=== PATIENT | male | born 1960 | race Caucasian/White ===

== ENCOUNTER 2017-11-11 19:27 | Emergency (ER) | payer MEDICAID ==
[~2017-11-11] VITALS: Ht 190.5 cm; Wt 65.3 kg
[~2017-11-11 19:27] MED LIST: DOCU100T9 PO
[2017-11-11 19:36] VITALS: BP_SYST 111
[2017-11-11] MEDS ORDERED: BACITRACIN 1 GM OINT TP ONE (20:00)
[2017-11-11] MEDS ORDERED: IBUPROFEN 600 MG TABLET PO ONE (20:00)
[2017-11-11] MEDS ORDERED: DIPH-TET-PERTUS Vaccine 0.5 ML VIAL (ADACEL) I.M. ONE (20:00)
[2017-11-11 21:33] VITALS: BP_SYST 118
== END 2017-11-11 21:28 | disposition home or self-care (01) ==
LOC: SED 19:27
DX: S46.911A Strain of unspecified muscle, fascia and tendon at shoulder and upper arm level, right arm, initial encounter (principal); S00.81XA Abrasion of other part of head, initial encounter; S80.212A Abrasion, left knee, initial encounter; S80.211A Abrasion, right knee, initial encounter; S60.511A Abrasion of right hand, initial encounter; K21.9 Gastro-esophageal reflux disease without esophagitis; Z88.0 Allergy status to penicillin; Z85.828 Personal history of other malignant neoplasm of skin; W19.XXXA Unspecified fall, initial encounter; Y93.89 Activity, other specified; Y92.89 Other specified places as the place of occurrence of the external cause; Y99.8 Other external cause status
CPT/HCPCS: 73030; 73560-TC; 90715; 99284

== ENCOUNTER 2022-09-05 19:17 | Inpatient (IN) | payer MEDICAID ==
[~2022-09-05] VITALS: Ht 190.5 cm; Wt 77.1 kg
[~2022-09-05 19:17] MED LIST changes: +ASPI-1155 PO; -DOCU100T9 PO; +LEVE1000 PO; +PHEN100C4 PO; +TAMS-11 PO; +VALP500S4 PO
[2022-09-05 19:25] VITALS: BP_SYST 132
--- NOTE | 2022-09-05 19:25 | NUR ---
Patient triaged and placed in waiting room. VSS and patient appears in no acute distress at this time. Accompanied by BLS, awaiting available bed, and MD notified of need for MSE.
[2022-09-05] MEDS ORDERED: levETIRAcetam 1,000 MG IV BAG 100 ML IV ONE (19:30)
[2022-09-05 20:13] LABS: BASOPHILS # (AUTO) 0.1 K/uL (0.0-0.2); BASOPHILS % (AUTO) 0.9 % (0.0-2.0); EOSINOPHILS # (AUTO) 0.1 K/uL (0.0-0.4); EOSINOPHILS % (AUTO) 1.6 % (0.0-4.0); HEMATOCRIT 32.2 % (36-54); HEMOGLOBIN 11.5 g/dL (14.0-18.0); LYMPHOCYTES # (AUTO) 1.8 K/uL (1.0-5.5); LYMPHOCYTES % (AUTO) 32.5 % (20.5-51.5); MEAN CORPUSCULAR HEMOGLOBIN 32 pg (27-31); MEAN CORPUSCULAR HGB CONC 36 % (32-36); MEAN CORPUSCULAR VOLUME 90 fL (79.0-98.0); MONOCYTES # (AUTO) 0.6 K/uL (0.0-1.0); MONOCYTES % (AUTO) 11.6 % (1.7-9.3); NEUTROPHILS % (AUTO) 53.4 % (40.0-70.0); PLATELET COUNT (AUTO) 366 K/uL (130-430); RED CELL DISTRIBUTION WIDTH 14.8 % (9.0-15.0); WHITE BLOOD COUNT (AUTO) 5.5 K/uL (4.8-10.8)
--- NOTE | 2022-09-05 20:28 | NUR ---
Placed in room 07 . Placed on cardiac catheterization technician, blood pressure machine and pulse oximeter. To gown for exam. Side rails up. Report given to ORACIO BROWNING
[2022-09-05 20:35] LABS: CALCIUM 8.2 mg/dL (8.4-11.0); CREATININE 0.64 mg/dL (0.55-1.30); TOTAL BILIRUBIN 0.1 mg/dL (0.0-1.0)
[2022-09-05] MEDS ORDERED: ALBU90AE2 INH (20:37)
[2022-09-05] MEDS ORDERED: HYDR-500 PO (20:37)
[2022-09-05] MEDS ORDERED: TAMS-11 PO (20:37)
[2022-09-05] MEDS ORDERED: CLIN-142 PO (20:37)
[2022-09-05] MEDS ORDERED: VIT1TABL44 PO (20:37)
[2022-09-05] MEDS ORDERED: ERGO500020 PO (20:37)
[2022-09-05] MEDS ORDERED: TERA5CAP4 PO (20:37)
[2022-09-05] MEDS ORDERED: FOLI-43 PO (20:37)
--- NOTE | 2022-09-05 20:42 | NUR ---
PT IS CAME WITH WITNESS SEIZURE, ALERT OTIENTED X4. USTEADY GAIT. HISTORY FOR CRADLE SCAT. SKIN CONDITION SKIN CANCER ON THE SCALP. HEATHER CAREGIVER [phone]
--- NOTE | 2022-09-05 20:45 | NUR ---
PADS FOR SEIZURE ARE PLACED. PT IS RESTING
--- NOTE | 2022-09-05 23:20 | NUR ---
pt had seizure episode witness. MD notified.
[2022-09-05] MEDS ORDERED: LORazepam 2 MG/ML VIAL ONE (23:27)
[2022-09-05] MEDS ORDERED: LORazepam 2 MG/ML VIAL IVP ONE (23:30)
[2022-09-05] MEDS ORDERED: ALBUTEROL SULFATE INH PRN (23:30)
--- NOTE | 2022-09-05 23:40 | NUR ---
Admit bed requested Patient will be admitted to care of . Admitted to telemetry unit. Diagnosis recurrent seizures Inpatient (Yes or No) y Observation (Yes or No) n Orientation concerns or request close to nursing station (Yes or No) y Covid Status neg On vent or bipap n Isolation requirements n Needs a sitter n From Home (Yes or if No enter name of facility) y Requires Dialysis (Yes or No) n Med Rec Completed (Yes of No) y
[2022-09-06] VITALS (7 sets, daily range): BP systolic 109–132
[2022-09-06] MEDS: CLINDAMYCIN HCL 150 MG CAPSULE PO SCH ×5 (00:18→23:23)
--- NOTE | 2022-09-06 01:10 | NUR ---
ADMIT NOTE Received pt from ER with a diagnosis of Encurrent Seizure. Admission process initiated. patient oriented to pain management, safety and call light-teach back done. Patient's small animal caretaker, Maura Eastman at bedside with patient.
--- NOTE | 2022-09-06 01:22 | NUR ---
Patient will be admitted to care of RECURRENT SEIZURE . Admitted to TELE unit. Will go to room 102b. Belongings list completed. Complete and up to date summary report printed. SBAR report to be given at bedside with opportunity for questions.
[2022-09-06 01:29] LABS: BILIRUBIN,URINE NEGATIVE (NEGATIVE); BLOOD, URINE NEGATIVE (NEGATIVE); CLARITY/URINE CLEAR (CLEAR); COLOR,URINE YELLOW (YELLOW); GLUCOSE,URINE NEGATIVE (NEGATIVE); KETONES,URINE NEGATIVE (NEGATIVE); LEUKOCYTE ESTERASE ,URINE NEGATIVE (NEGATIVE); NITRITE, URINE NEGATIVE (NEGATIVE); PH,URINE 6.5 (5.0-8.0); PROTEIN URINE NEGATIVE (NEGATIVE); UROBILINOGEN,URINE 0.2 (0.2-1.0)
--- NOTE | 2022-09-06 06:30 | NUR ---
PATIENT IS TOTAL CARE , NEEDS ASSISTANCE WITH USING THE URINAL , NEEDS FREQUENT RE- ORIENTATION , V/SS
[2022-09-06] MEDS: levETIRAcetam 500 MG TABLET PO SCH ×3 (07:03→21:21)
[2022-09-06] MEDS ORDERED: ALBUTEROL SULFATE 0.083% 2.5 MG/3 ML VIAL.NEB INH PRN (07:15)
--- NOTE | 2022-09-06 08:00 | NUR ---
Initial notes Received patient awake in bed, a/ox2, confusion and forgetful. respiration even and unlabored, no c/o pain or distress. IV to left hand patent, all safety secure, no seizure activity noted, side rails padded, bed in low position, continue to monitor.
[2022-09-06 08:52] LABS: BASOPHILS % (AUTO) 0.6 % (0.0-2.0); EOSINOPHILS # (AUTO) 0.1 K/uL (0.0-0.4); EOSINOPHILS % (AUTO) 1.8 % (0.0-4.0); HEMATOCRIT 32.1 % (36-54); HEMOGLOBIN 11.3 g/dL (14.0-18.0); LYMPHOCYTES # (AUTO) 1.9 K/uL (1.0-5.5); LYMPHOCYTES % (AUTO) 34.6 % (20.5-51.5); MEAN CORPUSCULAR HEMOGLOBIN 32 pg (27-31); MEAN CORPUSCULAR HGB CONC 35 % (32-36); MEAN CORPUSCULAR VOLUME 90 fL (79.0-98.0); MONOCYTES # (AUTO) 0.6 K/uL (0.0-1.0); MONOCYTES % (AUTO) 11.1 % (1.7-9.3); NEUTROPHILS # (AUTO) 2.8 K/uL (1.8-7.7); NEUTROPHILS % (AUTO) 51.9 % (40.0-70.0); PLATELET COUNT (AUTO) 367 K/uL (130-430); RED BLOOD CELL COUNT(AUTO) 3.57 MIL/uL (4.2-6.2); RED CELL DISTRIBUTION WIDTH 14.9 % (9.0-15.0); WHITE BLOOD COUNT (AUTO) 5.5 K/uL (4.8-10.8)
[2022-09-06 08:57] LABS: CALCIUM 7.8 mg/dL (8.4-11.0); CREATININE 0.63 mg/dL (0.55-1.30)
[2022-09-06] MEDS: ASPIRIN 81 MG TAB.CHEW PO SCH (09:29)
[2022-09-06] MEDS: FOLIC ACID 1 MG TABLET PO SCH (09:29)
[2022-09-06] MEDS: PHENYTOIN 100 MG CAPSULE PO SCH ×3 (09:30→21:20)
[2022-09-06] MEDS: NEPHROVITE, (FOLIC ACID/VITAMIN B COMP W-C 1 TAB) PO SCH (09:31)
--- NOTE | 2022-09-06 12:00 | NUR ---
Rounding Patient stable , no c/o pain, no seizure activity noted, family at bedside, continue to monitor.
--- NOTE | 2022-09-06 19:00 | NUR ---
Closing notes No seizure activity noted during my shift , side rails padded, bed in low position,will endorse to oncoming nurse.
--- NOTE | 2022-09-06 19:24 | NUR ---
RECEIVED PT LYING IN BED, NO DISTRESS NOTED, DENIES PAIN. O2 SAT ON RA IS 90%. APPLIED O2 2; O2 SAT 94%.. SALINE LOCK TO LT AC AND RT WRIST. ERYTHEMA AND SWELLING TO BLE. Addendum: 09/06/22 at 1929 by [employer], ORACIO NARAYANAN DOCUMENTED ON WRONG PT.
--- NOTE | 2022-09-06 19:49 | NUR ---
RECEIVED PT LYING IN BED, NO DISTRESS NOTED, DENIES PAIN. O2 SAT ON RA 98%. AAOX3. SALINE LOCK TO RT HAND SITE CDI. PT HAS LESS STRENGTH ON LUE UNABLE TO BRING ARM UP. NO SZ ACTIVITY NOTED AT THIS TIME. BED RAILS PADDED. WILL CONTINUE TO MONITOR CLOSELY. Addendum: 09/07/22 at 0102 by [employer], ORACIO RN PT HAS EPISODE OF CONFUSION/HALLUCINATIONS/FORGETFULNESS. PT STATED "MEET MY SISTER HEATHER" PT'S SISTER IS NOT IN THE ROOM. AFTER APPLYING OINTMENT TO HIS COCCYX, PT ASKED WHEN WAS IT GOING TO BE APPLIED. IT HAS TO BE EXPLAINED THAT IT WAS JUST DONE. BLANCHABLE REDNESS NOTED TO COCCYX AREA, APPLIED CRITIC AID PASTE.
[2022-09-06] MEDS ORDERED: TERAZOSIN HCL 5 MG CAPSULE (HYTRIN) PO SCH (21:00)
[2022-09-06] MEDS: TAMSULOSIN HCL 0.4 MG CAP PO SCH (21:21)
[2022-09-06 21:33] LABS: PHENYTOIN (DILANTIN) 4.1 ug/mL (10.0-20.0)
[2022-09-06 21:38] LABS: VALPROIC ACID < 3 ug/mL (50-100)
[2022-09-07 00:31] VITALS: BP_SYST 108
[2022-09-07] MEDS: CLINDAMYCIN HCL 150 MG CAPSULE PO SCH ×3 (06:23→18:20)
[2022-09-07] MEDS: levETIRAcetam 500 MG TABLET PO SCH ×3 (06:24→21:53)
[2022-09-07 07:31] LABS: BASOPHILS % (AUTO) 0.5 % (0.0-2.0); EOSINOPHILS # (AUTO) 0.1 K/uL (0.0-0.4); EOSINOPHILS % (AUTO) 1.9 % (0.0-4.0); HEMATOCRIT 32.7 % (36-54); HEMOGLOBIN 11.7 g/dL (14.0-18.0); LYMPHOCYTES # (AUTO) 2.2 K/uL (1.0-5.5); LYMPHOCYTES % (AUTO) 41.8 % (20.5-51.5); MEAN CORPUSCULAR HEMOGLOBIN 32 pg (27-31); MEAN CORPUSCULAR HGB CONC 36 % (32-36); MEAN CORPUSCULAR VOLUME 90 fL (79.0-98.0); MONOCYTES # (AUTO) 0.6 K/uL (0.0-1.0); NEUTROPHILS # (AUTO) 2.4 K/uL (1.8-7.7); NEUTROPHILS % (AUTO) 44.8 % (40.0-70.0); PLATELET COUNT (AUTO) 375 K/uL (130-430); RED BLOOD CELL COUNT(AUTO) 3.64 MIL/uL (4.2-6.2); RED CELL DISTRIBUTION WIDTH 14.5 % (9.0-15.0); WHITE BLOOD COUNT (AUTO) 5.3 K/uL (4.8-10.8)
[2022-09-07 07:57] LABS: CALCIUM 8.3 mg/dL (8.4-11.0); CREATININE 0.63 mg/dL (0.55-1.30)
[2022-09-07 08:00] VITALS: BP_SYST 124
[2022-09-07] MEDS: NEPHROVITE, (FOLIC ACID/VITAMIN B COMP W-C 1 TAB) PO SCH (08:37)
[2022-09-07] MEDS: PHENYTOIN 100 MG CAPSULE PO SCH ×3 (08:38→21:53)
[2022-09-07] MEDS: FOLIC ACID 1 MG TABLET PO SCH (08:38)
[2022-09-07] MEDS: ASPIRIN 81 MG TAB.CHEW PO SCH (08:38)
[2022-09-07 11:23] VITALS: BP_SYST 119
--- NOTE | 2022-09-07 15:29 | NUR ---
Discharge Planning: DCP faxed pt referral [phone]. DCP to follow up
[2022-09-07 16:12] VITALS: BP_SYST 121
--- NOTE | 2022-09-07 19:00 | NUR ---
CLOSING NOTES PATIENT RESTING IN BED, NO SIGN OF SEIZURE ACTIVITY, NO C/O PAIN DURING MY SHIFT, ALL SAFETY SECURED, SIDE RAILS PADDED, BED IN LOW POSITION, WILL ENDORSE .
[2022-09-07 20:00] VITALS: BP_SYST 112
[2022-09-07] MEDS: TAMSULOSIN HCL 0.4 MG CAP PO SCH (21:53)
--- NOTE | 2022-09-07 22:30 | NUR ---
Called [facility] for neurologist clearance Dr. Shanks cleared the patient to discharge to home. make a follow up appointment to him in 3 weeks.
[2022-09-07] MEDS: LORazepam 2 MG/ML VIAL IVP PRN (23:26)
[2022-09-08] MEDS: CLINDAMYCIN HCL 150 MG CAPSULE PO SCH ×4 (02:36→17:54)
[2022-09-08] MEDS: levETIRAcetam 500 MG TABLET PO SCH ×3 (05:46→21:09)
--- NOTE | 2022-09-08 07:30 | NUR ---
RECEIVED PT IN BED PT IS AAO3X, DENIES PAIN, NO SOB, NO FEVER. NOTED THAT PT HAS A BUMP ON HIS RIGHT FOR FOREHEAD WITH SMALL WOUND. PT IS NOT SURE WHERE HE GOT IT. NO REPORT OF FALL FROM LAST NIGHT FROM THE NIGHT NURSE.
[2022-09-08 08:18] VITALS: BP_SYST 107
[2022-09-08 08:27] VITALS: BP_SYST 107
[2022-09-08] MEDS: ASPIRIN 81 MG TAB.CHEW PO SCH (08:42)
[2022-09-08] MEDS: FOLIC ACID 1 MG TABLET PO SCH (08:43)
[2022-09-08] MEDS: PHENYTOIN 100 MG CAPSULE PO SCH ×3 (08:45→21:09)
[2022-09-08] MEDS: NEPHROVITE, (FOLIC ACID/VITAMIN B COMP W-C 1 TAB) PO SCH (08:45)
[2022-09-08 13:00] VITALS: BP_SYST 106
[2022-09-08] MEDS: NACL 0.9% 1,000 ML IV SCH ×2 (13:07→17:52)
[2022-09-08] MEDS: ONDANSETRON HCL 4 MG/2 ML VIAL IVP PRN (14:08)
--- NOTE | 2022-09-08 15:26 | NUR ---
TRIED ORTHO BP, PT UNABLE TO PARTICIPATE DUE TO PT VERY DROWSY, PT'S SBP IS ON THE LOW 100S.
--- NOTE | 2022-09-08 16:40 | NUR ---
Discharge Planning: DCP followed upon pt referral to [facility]#[phone] [facility] DCP left message. DCP{ to follow up
--- NOTE | 2022-09-08 19:40 | NUR ---
ROUNDS PATIENT RESTING COMFORTABLY IN BED, NOT IN DISTRESS, VITALS STABLE, NO COMPLAINTS AT THIS TIME. ASSESSMENT DONE AND DOCUMENTED. SEE FLOWSHEET. NEEDS ATTENDED TO. SAFETY AND SEIZURE PRECAUTIONS IN PLACED. BED IN LOW AND LOCKED POSITION. BED ALARM ON. CALL LIGHT PLACED WITHIN REACH.
[2022-09-08 20:00] VITALS: BP_SYST 108
[2022-09-08] MEDS: TAMSULOSIN HCL 0.4 MG CAP PO SCH (21:09)
[2022-09-09] MEDS: CLINDAMYCIN HCL 150 MG CAPSULE PO SCH ×5 (00:25→23:26)
[2022-09-09 00:27] VITALS: BP_SYST 111
[2022-09-09] MEDS: NACL 0.9% 1,000 ML IV SCH ×6 (00:29→23:15)
[2022-09-09] MEDS: LORazepam 2 MG/ML VIAL IVP PRN (05:29)
--- NOTE | 2022-09-09 05:29 | NUR ---
NOTES PATIENT HAD AN EPISODE OF SEIZURE CLAIMED AND WITNESSED BY FAMILY AT THE BEDSIDE. VITALS STABLE, PATIENT AWAKE, ALERT, ORIENTED AND DENIES ANY PAIN AT THIS TIME. ATIVAN 1 MG IV GIVEN ORDERED PRN FOR SEIZURE. WILL CONTINUE TO MONITOR.
[2022-09-09] MEDS: levETIRAcetam 500 MG TABLET PO SCH ×3 (05:30→21:06)
[2022-09-09] MEDS: ONDANSETRON HCL 4 MG/2 ML VIAL IVP PRN ×2 (05:53→14:17)
--- NOTE | 2022-09-09 08:12 | NUR ---
DR BLANCO RN REQUESTED TO CALL DR BLANCO TO SEE IF HE WAS COMING IN TONIGHT AND HE SAID NOT TONIGHT INFORMED RN Addendum: 09/10/22 at 0429 by Shyla Bailey CNA WRONG TIME WAS SUPPOSED TO BE [address] BLANCO
[2022-09-09] MEDS: ASPIRIN 81 MG TAB.CHEW PO SCH (10:12)
[2022-09-09] MEDS: NEPHROVITE, (FOLIC ACID/VITAMIN B COMP W-C 1 TAB) PO SCH (10:12)
[2022-09-09] MEDS: PHENYTOIN 100 MG CAPSULE PO SCH ×3 (10:13→21:06)
[2022-09-09] MEDS: FOLIC ACID 1 MG TABLET PO SCH (10:13)
[2022-09-09 11:21] VITALS: BP_SYST 99
[2022-09-09 15:24] VITALS: BP_SYST 133
--- NOTE | 2022-09-09 19:35 | NUR ---
ROUNDS PATIENT IN BED, WATCHING TV, NOT IN DISTRESS, VITALS STABLE, NO COMPLAINTS OF ANY PAIN AND DISCOMFORT. ASSESSMENT DONE AND DOCUMENTED. NEEDS ATTENDED TO. SAFETY, FALL AND SEIZURE PRECAUTIONS IN PLACED. BED IN LOW AND LOCKED POSITION. BED ALARM ON. CALL LIGHT WITHIN REACH. FAMILY AT THE BEDSIDE AND ASKING IF DR. BLANCO IS COMING TONIGHT. EXPLAINED TO HER THAT WE ARE NOT SURE OF IT AND I WILL FIND OUT. WILL CONTINUE TO MONITOR.
[2022-09-09 20:00] VITALS: BP_SYST 129
[2022-09-09] MEDS: TAMSULOSIN HCL 0.4 MG CAP PO SCH (21:06)
[2022-09-10] VITALS: BP_SYST 100
--- NOTE | 2022-09-10 00:13 | NUR ---
PATIENT RESTING: Patient resting quietly. No acute distress noted. Vital signs within normal range.
[2022-09-10] MEDS: LORazepam 2 MG/ML VIAL IVP PRN (04:07)
--- NOTE | 2022-09-10 04:07 | NUR ---
NOTES PATIENT HAD AN EPISODE OF SEIZURE WITNESSED BY THE FAMILY, PATIENT AWAKE, ALERT, ORIENTED X2. VITALS TAKEN AND STABLE. ATIVAN 1 MG IV GIVEN ORDERED PRN FOR SEIZURE. WILL CONTINUE TO MONITOR.
[2022-09-10] MEDS: NACL 0.9% 1,000 ML IV SCH ×2 (04:15→08:56)
--- NOTE | 2022-09-10 04:25 | NUR ---
DR BLANCO CALLED DR BLANCO CELL LEFT MESSAGE TO HAVE HIM CALL BACK . RN AWARE
--- NOTE | 2022-09-10 05:28 | NUR ---
DR. BELLA BLANCO CALLED BACK, MADE AWARE OF THE PATIENT'S SEIZURE AND FAMILY'S CONCERN. NO NEW ORDERS GIVEN AT THIS TIME. WILL CONTINUE TO MONITOR PATIENT.
[2022-09-10] MEDS: ONDANSETRON HCL 4 MG/2 ML VIAL IVP PRN (06:06)
[2022-09-10] MEDS: levETIRAcetam 500 MG TABLET PO SCH ×3 (06:06→22:38)
[2022-09-10] MEDS: CLINDAMYCIN HCL 150 MG CAPSULE PO SCH ×4 (06:06→23:30)
--- NOTE | 2022-09-10 06:50 | NUR ---
CLOSING NOTES PATIENT ASLEEP,NO SIGNS OF ANY DISTRESS, PAIN NOTED. ALL NEEDS ATTENDED TO. IVF INFUSING WELL. CALL LIGHT PLACED WITHIN REACH.
[2022-09-10] MEDS: ASPIRIN 81 MG TAB.CHEW PO SCH (08:53)
[2022-09-10] MEDS: FOLIC ACID 1 MG TABLET PO SCH (08:53)
[2022-09-10] MEDS: PHENYTOIN 100 MG CAPSULE PO SCH ×3 (08:53→22:37)
[2022-09-10] MEDS: NEPHROVITE, (FOLIC ACID/VITAMIN B COMP W-C 1 TAB) PO SCH (08:54)
[2022-09-10 11:54] VITALS: BP_SYST 107
[2022-09-10] MEDS: VALPROIC ACID 250 MG CAPSULE (DEPAKENE) PO SCH ×2 (16:24→22:38)
--- NOTE | 2022-09-10 16:55 | NUR ---
Dietitian Recommendations * Continue Mechanical Soft diet LP, MS, RD Please refer to Nutrition Assessment for details. Addendum: 09/10/22 at [address] Amended: Links added.
[2022-09-10 18:13] VITALS: BP_SYST 113
[2022-09-10 20:54] VITALS: BP_SYST 112
[2022-09-10] MEDS: TAMSULOSIN HCL 0.4 MG CAP PO SCH (22:37)
[2022-09-11] VITALS: BP_SYST 119
[2022-09-11] MEDS: CLINDAMYCIN HCL 150 MG CAPSULE PO SCH ×3 (07:44→18:09)
[2022-09-11] MEDS: levETIRAcetam 500 MG TABLET PO SCH ×3 (07:45→21:00)
[2022-09-11 08:00] VITALS: BP_SYST 122
--- NOTE | 2022-09-11 08:00 | NUR ---
Initial notes Alert, denies any pain or discomfort. On o2 2l, o2 sat 98%. family at bedside. On seizure and fall precautions. Call light within reach. Will monitor.
[2022-09-11] MEDS: NEPHROVITE, (FOLIC ACID/VITAMIN B COMP W-C 1 TAB) PO SCH (09:11)
[2022-09-11] MEDS: ASPIRIN 81 MG TAB.CHEW PO SCH (09:11)
[2022-09-11] MEDS: FOLIC ACID 1 MG TABLET PO SCH (09:12)
[2022-09-11] MEDS: PHENYTOIN 100 MG CAPSULE PO SCH ×2 (09:12→20:58)
[2022-09-11] MEDS: VALPROIC ACID 250 MG CAPSULE (DEPAKENE) PO SCH ×3 (09:13→20:58)
--- NOTE | 2022-09-11 11:00 | NUR ---
Notes Resting in bed, No distress or seizure noted. caregiver at bedside
[2022-09-11 11:31] VITALS: BP_SYST 114
[2022-09-11] MEDS ORDERED: MAGNESIUM OXIDE 400 MG TABLET PO ONE (14:15)
[2022-09-11] MEDS ORDERED: BISACODYL 5 MG TABLET.DR (DULCOLAX) PO ONE (14:15)
[2022-09-11 15:22] VITALS: BP_SYST 98
--- NOTE | 2022-09-11 18:30 | NUR ---
closing notes Eating dinner, Denies any pain or discomfort. No seizure activity noted on this shift.
[2022-09-11 20:52] VITALS: BP_SYST 111
[2022-09-11] MEDS: MAGNESIUM OXIDE 400 MG TABLET PO SCH (20:57)
[2022-09-11] MEDS: TAMSULOSIN HCL 0.4 MG CAP PO SCH (20:58)
[2022-09-12] MEDS: CLINDAMYCIN HCL 150 MG CAPSULE PO SCH ×2 (00:30→06:20)
[2022-09-12 00:33] VITALS: BP_SYST 103
[2022-09-12] MEDS: levETIRAcetam 500 MG TABLET PO SCH ×3 (06:20→21:52)
[2022-09-12 08:00] VITALS: BP_SYST 115
--- NOTE | 2022-09-12 08:00 | NUR ---
Notes- Awake, forgetful. eating breakfast, able to feed self. On room air. Denies any shortness of breath or pain. Safety precaution. Will monitor.
[2022-09-12] MEDS: PHENYTOIN 100 MG CAPSULE PO SCH ×2 (08:25→21:57)
[2022-09-12] MEDS: ASPIRIN 81 MG TAB.CHEW PO SCH (08:26)
[2022-09-12] MEDS: FOLIC ACID 1 MG TABLET PO SCH (08:26)
[2022-09-12] MEDS: VALPROIC ACID 250 MG CAPSULE (DEPAKENE) PO SCH ×3 (08:26→21:52)
[2022-09-12] MEDS: NEPHROVITE, (FOLIC ACID/VITAMIN B COMP W-C 1 TAB) PO SCH (08:26)
[2022-09-12] MEDS: MAGNESIUM OXIDE 400 MG TABLET PO SCH ×2 (08:27→21:57)
[2022-09-12 12:25] VITALS: BP_SYST 110
[2022-09-12 16:33] LABS: PHENYTOIN (DILANTIN) 4.5 ug/mL (10.0-20.0)
[2022-09-12 16:35] LABS: CALCIUM 8.3 mg/dL (8.4-11.0); CREATININE 0.61 mg/dL (0.55-1.30)
[2022-09-12 16:40] LABS: BASOPHILS # (AUTO) 0.1 K/uL (0.0-0.2); BASOPHILS % (AUTO) 0.6 % (0.0-2.0); EOSINOPHILS # (AUTO) 0.1 K/uL (0.0-0.4); EOSINOPHILS % (AUTO) 0.7 % (0.0-4.0); HEMATOCRIT 32.5 % (36-54); HEMOGLOBIN 11.8 g/dL (14.0-18.0); LYMPHOCYTES # (AUTO) 1.1 K/uL (1.0-5.5); MEAN CORPUSCULAR HEMOGLOBIN 32 pg (27-31); MEAN CORPUSCULAR HGB CONC 36 % (32-36); MEAN CORPUSCULAR VOLUME 89 fL (79.0-98.0); MONOCYTES # (AUTO) 0.9 K/uL (0.0-1.0); MONOCYTES % (AUTO) 9.6 % (1.7-9.3); NEUTROPHILS # (AUTO) 7.6 K/uL (1.8-7.7); NEUTROPHILS % (AUTO) 78.1 % (40.0-70.0); PLATELET COUNT (AUTO) 342 K/uL (130-430); RED BLOOD CELL COUNT(AUTO) 3.65 MIL/uL (4.2-6.2); RED CELL DISTRIBUTION WIDTH 14.2 % (9.0-15.0); TOTAL BILIRUBIN 0.3 mg/dL (0.0-1.0); WHITE BLOOD COUNT (AUTO) 9.8 K/uL (4.8-10.8)
[2022-09-12] MEDS: BISACODYL 5 MG TABLET.DR (DULCOLAX) PO PRN (17:02)
[2022-09-12 20:44] VITALS: BP_SYST 103
[2022-09-12] MEDS: TAMSULOSIN HCL 0.4 MG CAP PO SCH (21:51)
[2022-09-13 00:47] VITALS: BP_SYST 106
[2022-09-13] MEDS: levETIRAcetam 500 MG TABLET PO SCH ×3 (06:44→22:44)
--- NOTE | 2022-09-13 06:50 | NUR ---
@ 0230 Patient tried to have a BM but could not. catering barista called for assistance due to patient would retry to have a BM. Placed bed calhoun and noted patient's skin was warm and face reddened. Checked temp and was 98.9. Patient had three warm blankets and a comforter from home. Instructed patient and career representative to use just one blanket for now until his skin cools down. Furthermore, instructed career representative if the temp goes up and patient will not have a BM will notify MD. @ 7124 went to f/u on patient. Bed calhoun was removed and career representative was not in the room. Patient stated that he had a small BM. Rechecked patient's temp and was 97.9. Skin was cooler and face was not as red as earlier. BP 132/74; no c/o pain or discomfort. SR on the monitor.
[2022-09-13 07:56] VITALS: BP_SYST 104
[2022-09-13] MEDS: ASPIRIN 81 MG TAB.CHEW PO SCH (09:17)
[2022-09-13] MEDS: VALPROIC ACID 250 MG CAPSULE (DEPAKENE) PO SCH ×3 (09:17→20:58)
[2022-09-13] MEDS: MAGNESIUM OXIDE 400 MG TABLET PO SCH ×2 (09:18→21:02)
[2022-09-13] MEDS: NEPHROVITE, (FOLIC ACID/VITAMIN B COMP W-C 1 TAB) PO SCH (09:18)
[2022-09-13] MEDS: FOLIC ACID 1 MG TABLET PO SCH (09:18)
[2022-09-13 11:25] VITALS: BP_SYST 108
[2022-09-13] MEDS ORDERED: PHEN100C4 PO (13:05)
[2022-09-13] MEDS ORDERED: MAGN400T10 PO (13:05)
[2022-09-13] MEDS ORDERED: BISA-140 PO (13:05)
[2022-09-13] MEDS ORDERED: VALP250C3 PO (13:05)
[2022-09-13 15:23] VITALS: BP_SYST 102
--- NOTE | 2022-09-13 16:30 | NUR ---
md visit dr altamirano here. talked to sister. dr altamirano recommended pt to go snf . sister ni agreed. adele rental coordinator made aware.
--- NOTE | 2022-09-13 16:58 | NUR ---
0800- pt stable not in acute distress. denies pain or orther discomfort. vitals stable. 1100- pt walked with pt. sister with him in hallway with pt. not in acute distress. 1230- pt stable not in acute ditress. vital stable. pt cleaned and repositioned .
--- NOTE | 2022-09-13 19:42 | NUR ---
CLOSING NOTES PT STABLE NOT IN ACUTE DISTRESS. DENIES ANY PAIN OR ORTHER DISCOMFORT.REPORT GIVEN TO NIGHT NURSE
[2022-09-13 20:49] VITALS: BP_SYST 105
[2022-09-13] MEDS: TAMSULOSIN HCL 0.4 MG CAP PO SCH (20:58)
[2022-09-13] MEDS: PHENYTOIN 100 MG CAPSULE PO SCH (20:59)
[2022-09-14 00:32] VITALS: BP_SYST 101
[2022-09-14] MEDS: levETIRAcetam 500 MG TABLET PO SCH ×3 (06:53→22:18)
[2022-09-14] MEDS: VALPROIC ACID 250 MG CAPSULE (DEPAKENE) PO SCH ×3 (09:02→20:27)
[2022-09-14] MEDS: MAGNESIUM OXIDE 400 MG TABLET PO SCH ×2 (09:02→20:26)
[2022-09-14] MEDS: ASPIRIN 81 MG TAB.CHEW PO SCH (09:02)
[2022-09-14] MEDS: NEPHROVITE, (FOLIC ACID/VITAMIN B COMP W-C 1 TAB) PO SCH (09:02)
[2022-09-14] MEDS: FOLIC ACID 1 MG TABLET PO SCH (09:02)
[2022-09-14 11:29] VITALS: BP_SYST 98
--- NOTE | 2022-09-14 14:01 | NUR ---
Discharge Planning: DCP followed upon pt referral to [facility]#[phone] for SNF, DCP to follow up.
[2022-09-14 15:38] VITALS: BP_SYST 116
--- NOTE | 2022-09-14 19:30 | NUR ---
OPENING NOTE Pt is awake lying in bed. No s/s of respiratory distress. Breathing even and unlabored on RA. IV site intact and patent saline lock. Seizure and aspiration precautions in place with padded side rails and HOB elevated. Fall and safety precautions in place with bed in lowest position, bed alarm on, and call light within reach
--- NOTE | 2022-09-14 19:45 | NUR ---
patient remains A/0x3, he is dependant for feeding and meds and is incontinent. Patient reports no s/s of distress and shows no signs of any seizure activity throughout the day. patient remains on aspiration and seizure precautions will continue to monitor and assess patient.
[2022-09-14 20:00] VITALS: BP_SYST 93
[2022-09-14] MEDS: TAMSULOSIN HCL 0.4 MG CAP PO SCH (20:23)
[2022-09-14] MEDS: PHENYTOIN 100 MG CAPSULE PO SCH (20:27)
[2022-09-14] MEDS: guaiFENesin/DEXTROMETHORPHAN 10 ML UDC PO PRN (22:17)
[2022-09-14] MEDS: CALCIUM CARBONATE 500 MG/ TAB.CHEW PO PRN (22:17)
--- NOTE | 2022-09-15 00:15 | NUR ---
ROUNDS Pt lying in bed, eyes closed. No s/s of acute distress. Caregiver/sister at bedside. Fall and safety checks in place
[2022-09-15 00:20] VITALS: BP_SYST 117
[2022-09-15] MEDS: levETIRAcetam 500 MG TABLET PO SCH ×3 (06:04→22:24)
--- NOTE | 2022-09-15 07:23 | NUR ---
CLOSING NOTE Pt is awake lying in bed. No s/s of respiratory distress. Breathing even and unlabored on RA. IV site intact and patent saline lock. Seizure and aspiration precautions in place with padded side rails and HOB elevated. All needs met throughout shift. Fall and safety precautions in place with bed in lowest position, bed alarm on, and call light within reach
--- NOTE | 2022-09-15 07:25 | NUR ---
opening note received sbar from night RN. Patient in bed, respirations even, non labored, bed in low and locked position call light within reach, bed alarm on.
[2022-09-15 07:47] LABS: BASOPHILS % (AUTO) 0.4 % (0.0-2.0); EOSINOPHILS # (AUTO) 0.2 K/uL (0.0-0.4); EOSINOPHILS % (AUTO) 2.4 % (0.0-4.0); HEMATOCRIT 31.1 % (36-54); HEMOGLOBIN 10.9 g/dL (14.0-18.0); LYMPHOCYTES # (AUTO) 2.2 K/uL (1.0-5.5); LYMPHOCYTES % (AUTO) 34.5 % (20.5-51.5); MEAN CORPUSCULAR HEMOGLOBIN 32 pg (27-31); MEAN CORPUSCULAR HGB CONC 35 % (32-36); MEAN CORPUSCULAR VOLUME 91 fL (79.0-98.0); MONOCYTES # (AUTO) 0.8 K/uL (0.0-1.0); MONOCYTES % (AUTO) 13.3 % (1.7-9.3); NEUTROPHILS # (AUTO) 3.2 K/uL (1.8-7.7); NEUTROPHILS % (AUTO) 49.4 % (40.0-70.0); PLATELET COUNT (AUTO) 344 K/uL (130-430); RED BLOOD CELL COUNT(AUTO) 3.43 MIL/uL (4.2-6.2); RED CELL DISTRIBUTION WIDTH 13.9 % (9.0-15.0); WHITE BLOOD COUNT (AUTO) 6.4 K/uL (4.8-10.8)
[2022-09-15 07:53] LABS: CALCIUM 7.9 mg/dL (8.4-11.0); CREATININE 0.67 mg/dL (0.55-1.30); PHENYTOIN (DILANTIN) 3.3 ug/mL (10.0-20.0)
[2022-09-15 08:00] VITALS: BP_SYST 154
[2022-09-15] MEDS: ASPIRIN 81 MG TAB.CHEW PO SCH (08:20)
[2022-09-15] MEDS: MAGNESIUM OXIDE 400 MG TABLET PO SCH ×2 (08:20→22:22)
[2022-09-15] MEDS: NEPHROVITE, (FOLIC ACID/VITAMIN B COMP W-C 1 TAB) PO SCH (08:20)
[2022-09-15] MEDS: FOLIC ACID 1 MG TABLET PO SCH (08:20)
[2022-09-15] MEDS: VALPROIC ACID 250 MG CAPSULE (DEPAKENE) PO SCH ×3 (08:21→22:21)
--- NOTE | 2022-09-15 09:15 | NUR ---
family patients sister is bedside. very upset that patient was feeding himself breakfast felt that head of bed was too low. Insisted to speak with "someone other than you" and wants to find out when he will discharged. Called and left a message for case management, both Jose Carlos and Anita. Justice was on the floor and I requested that he go and speak with sister.
--- NOTE | 2022-09-15 11:25 | NUR ---
nurse note patient requesting tums and cough syrup
[2022-09-15 11:28] VITALS: BP_SYST 97
[2022-09-15] MEDS: CALCIUM CARBONATE 500 MG/ TAB.CHEW PO PRN (11:30)
[2022-09-15] MEDS: guaiFENesin/DEXTROMETHORPHAN 10 ML UDC PO PRN (11:32)
[2022-09-15] MEDS ORDERED: IPRATROPIUM/ALBUTEROL SULFATE 3 ML AMPUL.NEB (DUONEB) INH PRN (13:30)
[2022-09-15] MEDS: IPRATROPIUM/ALBUTEROL SULFATE 3 ML AMPUL.NEB (DUONEB) INH SCH ×2 (15:10→20:13)
[2022-09-15] MEDS: metroNIDAZOLE 500 mg/NS 100 ML IV SCH ×2 (15:12→22:24)
[2022-09-15 15:25] VITALS: BP_SYST 101
--- NOTE | 2022-09-15 15:37 | NUR ---
NURSE NOTE PATIENT IN BED, RESPIRATIONS EVEN,, NON LABORED, BED IN LOW AND LOCKED POSITION, CALL LIGHT WITHIN REACH, SISTER IS BEDSIDE. DENIES ANY PAIN OR DISCOMFORT
--- NOTE | 2022-09-15 16:01 | NUR ---
ST EVALUATION COMPLETED. ST TX NOT INDICATED AT THIS TIME. RECOMMEND PO DIET OF MECHANICAL SOFT/THIN LIQUIDS. 1:1 YACHT RIGGER (ONLY HOSPITAL STAFF) FEEDER FOR ENTIRE MEAL AND FULL ASPIRATION PRECAUTIONS.
--- NOTE | 2022-09-15 17:21 | NUR ---
DVT INFORMED DR ROWE THAT PATIENT NEEDS DVT NEW ORDERS RECEIVED
--- NOTE | 2022-09-15 18:34 | NUR ---
diet patient and his sister have requested that his food be pureed. new orders received
[2022-09-15 19:00] VITALS: BP_SYST 115
--- NOTE | 2022-09-15 19:15 | NUR ---
change of shift.pt.presents challenge;physical.pt.presents general weakness x4 extremities.pt.presents activity status bedrest.mental status.cognition/mentation wnl.pt.response time slow.pt.presents iv access intact location lt.forearm. general status weakness x4 extremities.respiratory status stable;shallow in depth.o2 sat%=98%.call light/telephone w/in access of the pt.
--- NOTE | 2022-09-15 19:15 | NUR ---
CLOSING NOTE PROVIDED SBAR TO NIGHT RN. PATIENT IN BED, RESPIRATIONS EVEN, NON LABORED, BED IN LOW AND LOCKED POSITION CALL LIGHT WITHIN REACH, BED ALARM ON. SISTER IS BEDSIDE. ENDORSED TO RN SCD APPLICATION, AND OR FOR 1:1 STAFF FEEDINGS.
[2022-09-15 20:00] VITALS: BP_SYST 115
--- NOTE | 2022-09-15 20:00 | NUR ---
pt.assessed.v/s assessed values wnl.o2-sat=98%room air.no c/o pain,nausea.pt.apprised snacks/beverages are available w/in the shift.no requests posited@this hour.pt.assessed for cleanliness.pt.repositioned.call light/telephone placed w/in access of the pt.
[2022-09-15] MEDS ORDERED: LACTOBACILLUS RHAMNOSUS GG 1 CAP CAPSULE PO SCH (21:00)
--- NOTE | 2022-09-15 21:00 | NUR ---
2100p medications administered.pt.capable to ingest the po medications slowly slight challenged.sx med regimen administered;dilantin;bebo bajwa.no requests posited@this hour.call light/telephone w/in access of the pt.
--- NOTE | 2022-09-15 22:00 | NUR ---
pt.assessed.pt.quiescent.iv access intact.no c/o pain,nausea.pt.assessed for cleanliness.pt.repositioned.02-sat%=98%. call light/telephone placed w/in access of the pt.
[2022-09-15] MEDS: PHENYTOIN 100 MG CAPSULE PO SCH (22:21)
[2022-09-15] MEDS: TAMSULOSIN HCL 0.4 MG CAP PO SCH (22:27)
[2022-09-15] MEDS: LACTOBACILLUS RHAMNOSUS GG 1 CAP CAPSULE PO SCH (22:31)
--- NOTE | 2022-09-16 | NUR ---
pt.assessed.v/s assessed values wnl.no c/o pain,nausea.no requests posited@this hour.pt.assessed for cleanliness.pt.repositioned.iv access intact,call light/telephone w/in access of the pt.
[2022-09-16 00:39] VITALS: BP_SYST 101
--- NOTE | 2022-09-16 02:00 | NUR ---
pt.assessed.pt.quiescent.per flacc pain mgx pt.absent facial grimaces/body posturing.pt.assessed for cleanliness. pt.repositioned/call light/telephone placed w/in access of the pt.
--- NOTE | 2022-09-16 04:00 | NUR ---
pt.assessed.pt.quiescent;somnolent.per flacc pain mgx pt.absent facial grimaces/body posturing.pt.assessed for cleanliness.pt.repositioned.call light/telephone placed w/in access of the pt.
[2022-09-16] MEDS: levETIRAcetam 500 MG TABLET PO SCH ×3 (05:09→21:27)
[2022-09-16] MEDS: metroNIDAZOLE 500 mg/NS 100 ML IV SCH ×3 (05:09→21:28)
--- NOTE | 2022-09-16 06:19 | NUR ---
pt.assessed.pt.quiescent.no c/o pain,nausea.keppra 0600a dose administered.flagyl 93093z dose administered. pt.assessed for cleanliness.pt.repositioned.call light/telephone placed w/in access of the pt.
[2022-09-16] MEDS: IPRATROPIUM/ALBUTEROL SULFATE 3 ML AMPUL.NEB (DUONEB) INH SCH ×4 (07:14→20:35)
[2022-09-16 08:57] VITALS: BP_SYST 107
[2022-09-16] MEDS: MAGNESIUM OXIDE 400 MG TABLET PO SCH ×2 (09:00→21:27)
[2022-09-16 11:24] VITALS: BP_SYST 102
[2022-09-16] MEDS: FOLIC ACID 1 MG TABLET PO SCH (11:48)
[2022-09-16] MEDS: NEPHROVITE, (FOLIC ACID/VITAMIN B COMP W-C 1 TAB) PO SCH (11:49)
[2022-09-16] MEDS: ASPIRIN 81 MG TAB.CHEW PO SCH (11:49)
[2022-09-16] MEDS: VALPROIC ACID 250 MG CAPSULE (DEPAKENE) PO SCH ×3 (11:50→21:37)
[2022-09-16] MEDS: LACTOBACILLUS RHAMNOSUS GG 1 CAP CAPSULE PO SCH ×2 (11:50→21:25)
--- NOTE | 2022-09-16 12:21 | NUR ---
CM: faxed PT note and md progress notes to [facility]#[phone] for SNF, DCP to follow up.
[2022-09-16 15:22] VITALS: BP_SYST 129
--- NOTE | 2022-09-16 18:00 | NUR ---
PATIENT EXPERIENCED TWITCHING OF THE FOOT AND ARM LASTING ABOUT 1 MIN AROUND 10AM, MADE AWARE, VISITED PATIENT NO NEW ORDERS
[2022-09-16 20:00] VITALS: BP_SYST 91
--- NOTE | 2022-09-16 20:00 | NUR ---
Received report from Day shift nurse. pt awake, alert and oriented x 2. Maura(sister) at bedside all the time. No pressure injury. No seizure activity. v/s stable afebrile.
[2022-09-16] MEDS: PHENYTOIN 100 MG CAPSULE PO SCH (21:36)
[2022-09-16] MEDS: TAMSULOSIN HCL 0.4 MG CAP PO SCH (21:37)
--- NOTE | 2022-09-17 | NUR ---
ROUNDS; -Pt is resting in bed comfortably. Pt denies any chest pain, pain,sob,or any acute distress. Bed alarmed, side rails x3, call light w/in reach. Cont to monitor pt. Addendum: 09/18/22 at 0003 by Jen Dotson, ORACIO NARAYANAN late entry- charting wrong date
[2022-09-17 02:05] VITALS: BP_SYST 100
[2022-09-17] MEDS: guaiFENesin/DEXTROMETHORPHAN 10 ML UDC PO PRN (03:01)
--- NOTE | 2022-09-17 03:25 | NUR ---
PT had BM x1- large amount. also c/o cough. Medicated Robitussin dm oral x 1.
--- NOTE | 2022-09-17 06:00 | NUR ---
Pt's sleeping soundly. No s/sx of Seizure. Given Keppra 1000 mg oral every 8 hr. Cont Seizure precaution.
[2022-09-17] MEDS: levETIRAcetam 500 MG TABLET PO SCH ×3 (06:08→21:54)
[2022-09-17] MEDS: metroNIDAZOLE 500 mg/NS 100 ML IV SCH ×3 (06:08→21:55)
[2022-09-17] MEDS: IPRATROPIUM/ALBUTEROL SULFATE 3 ML AMPUL.NEB (DUONEB) INH SCH ×4 (07:30→21:21)
--- NOTE | 2022-09-17 08:00 | NUR ---
AM NOTES PATIENT ON DROPLET ISOLATION DUE TO INFLUENZA POSITIVE, WITH CENTRAL LINE RIGHT INTRAJUGULAR SITE RUNNING IV FLUIDS, WITH JEJUNOSTOMY INTACT. PATIENT HAS NO FEEDING TUBE AT THIS TIME, PER DIGESTER NURSE, FEEDING PUMP MACHINE WAS NOT WORKING PROPERLY BEEN CHANGE SEVERAL TIMES. JEJUNOSTOMY TUBE ABLE TO FLUSHED WITH WATER, AND WORKING PROPERLY.CLEAR LIQUID DIET WAS DC'D. SEEN BY DR MCKOY AND ORDERED TO RESUME PATIENT"S DIET ON CLEAR LIQUID. PATIENT SUCTIONED HIMSELF, NEW CANISTER CHANGED FOR SUCTION.
[2022-09-17 08:20] VITALS: BP_SYST 127
[2022-09-17 08:25] VITALS: BP_SYST 127
--- NOTE | 2022-09-17 09:30 | NUR ---
Discharge Planning: [facility] followed with Lavelle [phone] at [facility] pending SNF acceptance, DCP to follow up. Addendum: 09/17/22 at 1615 by Larissa Coe DP DCSlava spoke to Chelle [phone] pt accepted to [phone] [place]-[phone] JULIO Russ made CM aware.
[2022-09-17] MEDS: VALPROIC ACID 250 MG CAPSULE (DEPAKENE) PO SCH ×3 (10:14→21:53)
[2022-09-17] MEDS: ASPIRIN 81 MG TAB.CHEW PO SCH (10:14)
[2022-09-17] MEDS: FOLIC ACID 1 MG TABLET PO SCH (10:15)
[2022-09-17] MEDS: MAGNESIUM OXIDE 400 MG TABLET PO SCH ×2 (10:16→21:54)
[2022-09-17] MEDS: NEPHROVITE, (FOLIC ACID/VITAMIN B COMP W-C 1 TAB) PO SCH (10:16)
[2022-09-17] MEDS: LACTOBACILLUS RHAMNOSUS GG 1 CAP CAPSULE PO SCH ×2 (10:18→21:54)
[2022-09-17 11:28] VITALS: BP_SYST 105
--- NOTE | 2022-09-17 15:30 | NUR ---
ADONAY: spoke with Chelle CEDILLO at [facility] [place] # [phone], found 2 accepting snf , [place] [facility], [place] and [facility] snf , [place]. Informed Maura, caregiver , said will decide for which facility to send pt after she check them out.
[2022-09-17 15:32] VITALS: BP_SYST 104
[2022-09-17 19:40] VITALS: BP_SYST 97
--- NOTE | 2022-09-17 19:40 | NUR ---
PM ASSESSMENT; -Pt is a/ox3, resting in bed comfortably. Pt denies any chest pain, pain,sob,or any acute distress. Discussed poc with pt, he verbalized understanding. Pt is able to use call light for assistance. Bed alarmed, side rails x3, call light w/in reach. Cont to monitor pt.
[2022-09-17] MEDS: TAMSULOSIN HCL 0.4 MG CAP PO SCH (21:54)
[2022-09-17] MEDS: PHENYTOIN 100 MG CAPSULE PO SCH (21:54)
--- NOTE | 2022-09-18 | NUR ---
ROUNDS; -Pt is resting in bed comfortably. Pt denies any chest pain, pain,sob,or any acute distress. Bed alarmed, side rails x3, call light w/in reach. Cont to monitor pt.
[2022-09-18 00:05] VITALS: BP_SYST 108
--- NOTE | 2022-09-18 04:16 | NUR ---
ROUNDS; -Pt is asleep. No s/s any chest pain, pain,sob,or any acute distress noted. Bed alarmed, side rails x3, call light w/in reach. Cont to monitor pt.
--- NOTE | 2022-09-18 04:20 | NUR ---
WENT IN PT ROOM PT WAS YELLING AND CONFUSED WITH RIGHT SIDE HANGING IN BETWEEN RAILS REDIRECTED PT CHANGED PT AND REPOSITIONED PT
--- NOTE | 2022-09-18 04:40 | NUR ---
WENT IN PT ROOM PT WAS YELLING REDIRECTED PT CHANGED PT PT VOIDED READJUSTED PT IN BED WITH PILLOWS
[2022-09-18] MEDS: levETIRAcetam 500 MG TABLET PO SCH ×3 (05:07→21:01)
[2022-09-18] MEDS: metroNIDAZOLE 500 mg/NS 100 ML IV SCH ×3 (05:07→22:14)
--- NOTE | 2022-09-18 05:15 | NUR ---
WENT TABBY IN PT ROOM TO CHECK PT HAD BM AND WAS FINGER PATINING AND PLAYING IN BM REDIRECTED PT CLEAN AND READJUSTED PT BED ALARM WAS STILL ON
--- NOTE | 2022-09-18 06:52 | NUR ---
ROUNDS; -Pt is resting in bed comfortably. Pt denies any chest pain, pain,sob,or any acute distress. Pt's condition stable entire shift. No seizure activity noted entire shift. Bed alarmed, side rails x3, call light w/in reach. will endorse to next nurse to cont care. Addendum: 09/18/22 at 0653 by Jen Dotson RN RN CORRECTION-IT'S CLOSING NOTES; NOT ROUNDS
[2022-09-18] MEDS: IPRATROPIUM/ALBUTEROL SULFATE 3 ML AMPUL.NEB (DUONEB) INH SCH ×4 (07:16→20:10)
[2022-09-18 08:40] VITALS: BP_SYST 104
[2022-09-18] MEDS: BISACODYL 5 MG TABLET.DR (DULCOLAX) PO PRN (09:05)
[2022-09-18] MEDS: guaiFENesin/DEXTROMETHORPHAN 10 ML UDC PO PRN (09:05)
[2022-09-18] MEDS: LACTOBACILLUS RHAMNOSUS GG 1 CAP CAPSULE PO SCH ×2 (09:06→21:05)
[2022-09-18] MEDS: NEPHROVITE, (FOLIC ACID/VITAMIN B COMP W-C 1 TAB) PO SCH (09:06)
[2022-09-18] MEDS: ASPIRIN 81 MG TAB.CHEW PO SCH (09:06)
[2022-09-18] MEDS: FOLIC ACID 1 MG TABLET PO SCH (09:07)
[2022-09-18] MEDS: MAGNESIUM OXIDE 400 MG TABLET PO SCH ×2 (09:07→21:03)
[2022-09-18] MEDS: VALPROIC ACID 250 MG CAPSULE (DEPAKENE) PO SCH ×3 (09:12→20:58)
[2022-09-18 17:29] VITALS: BP_SYST 93
--- NOTE | 2022-09-18 17:29 | NUR ---
SUMMARY OF CARE late entry due to pt care 07:30 assumed patient care. patient in bed eyes closed. arousable by tactile stimuli. plan of care discussed. verbalized understanding 09:00- disccontinued peripheral iv on the left wrist and the right AC. patient has a right IJ central line triple lumen. asseptic technique observed when accessing central line 1300- Dr Price here to see patient. increased tube feeding to 45ml per hour, tolerated by patient 17;00 patient sleepy the whole day. vitals are stable
[2022-09-18 20:00] VITALS: BP_SYST 96
--- NOTE | 2022-09-18 20:00 | NUR ---
opening shift . pt is alert and oriented which currently resting in bed. lower bed.
[2022-09-18] MEDS: TAMSULOSIN HCL 0.4 MG CAP PO SCH (20:58)
[2022-09-18] MEDS: PHENYTOIN 100 MG CAPSULE PO SCH (20:59)
--- NOTE | 2022-09-18 21:00 | NUR ---
pt is waiting for meds, the caregiver in the bed side. continue the seizure precaution
[2022-09-19] VITALS: BP_SYST 108
[2022-09-19] MEDS: metroNIDAZOLE 500 mg/NS 100 ML IV SCH ×3 (06:00→22:12)
[2022-09-19] MEDS: IPRATROPIUM/ALBUTEROL SULFATE 3 ML AMPUL.NEB (DUONEB) INH SCH ×4 (07:06→20:15)
[2022-09-19] MEDS: levETIRAcetam 500 MG TABLET PO SCH ×3 (07:41→22:08)
[2022-09-19 08:06] LABS: CALCIUM 7.9 mg/dL (8.4-11.0); CREATININE 0.49 mg/dL (0.55-1.30); PHENYTOIN (DILANTIN) 1.2 ug/mL (10.0-20.0)
[2022-09-19 08:30] LABS: BASOPHILS % (AUTO) 0.5 % (0.0-2.0); EOSINOPHILS # (AUTO) 0.2 K/uL (0.0-0.4); EOSINOPHILS % (AUTO) 3.6 % (0.0-4.0); HEMATOCRIT 32.2 % (36-54); HEMOGLOBIN 11.2 g/dL (14.0-18.0); LYMPHOCYTES # (AUTO) 1.6 K/uL (1.0-5.5); LYMPHOCYTES % (AUTO) 31.3 % (20.5-51.5); MEAN CORPUSCULAR HEMOGLOBIN 32 pg (27-31); MEAN CORPUSCULAR HGB CONC 35 % (32-36); MEAN CORPUSCULAR VOLUME 92 fL (79.0-98.0); MONOCYTES # (AUTO) 0.8 K/uL (0.0-1.0); MONOCYTES % (AUTO) 15.3 % (1.7-9.3); NEUTROPHILS # (AUTO) 2.6 K/uL (1.8-7.7); NEUTROPHILS % (AUTO) 49.3 % (40.0-70.0); PLATELET COUNT (AUTO) 376 K/uL (130-430); RED BLOOD CELL COUNT(AUTO) 3.52 MIL/uL (4.2-6.2); WHITE BLOOD COUNT (AUTO) 5.2 K/uL (4.8-10.8)
--- NOTE | 2022-09-19 08:33 | NUR ---
INITIAL ROUNDS Received pt AAOx3, no s/s resp distress, no c/o pain or discomfort. Seizure precautions in place. Plan of care for the day reviewed with pt-pt verbalized his understanding. Pt mostly wants to see his sister. Pain management, skin and safety discussed-pt stated okay. Side rails up x3, bed alarm on and room close to nursing station for safety. Call light within reach.
[2022-09-19 09:00] VITALS: BP_SYST 102
[2022-09-19] MEDS: MAGNESIUM OXIDE 400 MG TABLET PO SCH ×2 (10:15→22:08)
[2022-09-19] MEDS: ASPIRIN 81 MG TAB.CHEW PO SCH (10:15)
[2022-09-19] MEDS: NEPHROVITE, (FOLIC ACID/VITAMIN B COMP W-C 1 TAB) PO SCH (10:16)
[2022-09-19] MEDS: LACTOBACILLUS RHAMNOSUS GG 1 CAP CAPSULE PO SCH ×2 (10:16→22:08)
[2022-09-19] MEDS: VALPROIC ACID 250 MG CAPSULE (DEPAKENE) PO SCH ×3 (10:16→22:11)
[2022-09-19] MEDS: FOLIC ACID 1 MG TABLET PO SCH (10:16)
[2022-09-19 11:16] VITALS: BP_SYST 96
--- NOTE | 2022-09-19 14:35 | NUR ---
ROUNDS/SKIN Pt resting quietly with career technology teacher at bedside. Pt placed on bed calhoun, had a large soft bowel movement, pt cleaned up with moisture barrier cream placed on buttocks, skin intact. Pt repositioned with pillow support. All precautions remain in place. Call light within reach.
[2022-09-19 15:22] VITALS: BP_SYST 97
--- NOTE | 2022-09-19 19:08 | NUR ---
CLOSING NOTE Pt resting quietly in bed with no s/s resp distress, no s/s seizure activity, no c/o pain or discomfort. Pt's caregiver at bedside. All precautions remain in place. Call light within reach.
[2022-09-19 19:10] VITALS: BP_SYST 120
[2022-09-19] MEDS: PHENYTOIN 100 MG CAPSULE PO SCH (22:08)
[2022-09-19] MEDS: TAMSULOSIN HCL 0.4 MG CAP PO SCH (22:08)
[2022-09-20 02:10] VITALS: BP_SYST 104
[2022-09-20] MEDS: metroNIDAZOLE 500 mg/NS 100 ML IV SCH ×2 (06:28→15:16)
[2022-09-20] MEDS: levETIRAcetam 500 MG TABLET PO SCH ×2 (06:28→15:14)
--- NOTE | 2022-09-20 07:42 | NUR ---
PATIENT NOTED WITH AN UNEVENTFUL SHIFT- NOTE eMAR AND FLOWSHEETS THIS SHIFT. ALL PRECAUTIONS REMAIN MD ORDERED. VSS AND PT DENIES PAIN OR DISTRESS AT THIS TIME. THIS RN TO PLACE CONDOM CATHETER ON PATIENT AROUND 09/19/2022 22:00 WHILE MAKING ROUNDS- SISTER HEATHER CAME TO THE CONCRETE STONE FABRICATOR SHORTLY AFTER SHE ARRIVED AND ASKED THAT IT BE REMOVED WHEN SHE ARRIVED BECAUSE SHE DIDN'T WANT HIM TO GET COMFORTABLE WITH IT AND HE HAD TO GO HOME WITH HER AND STILL NEEDED TO PERFORM SOME ADL'S ON HIS OWN FOR EXAMPLE CONTROLLING HIS BOWEL AND BLADDER- CONDOM CATHETER REMOVED AT THAT TIME. WILL CONTINUE POC AND ENDORSE TO ONCOMING RN.
[2022-09-20] MEDS: IPRATROPIUM/ALBUTEROL SULFATE 3 ML AMPUL.NEB (DUONEB) INH SCH ×4 (07:43→19:50)
--- NOTE | 2022-09-20 08:00 | NUR ---
RECEIVED PATIENT FROM PM NURSE AWAKE AND ABLE TO VERBALIZE NEEDS, SISTER AT BEDSIDE PROVIDING SUP[PORT TO PATIENT, WILL ASSUME ALL CARE OF PATIENT
[2022-09-20] MEDS: ASPIRIN 81 MG TAB.CHEW PO SCH (08:58)
[2022-09-20] MEDS: LACTOBACILLUS RHAMNOSUS GG 1 CAP CAPSULE PO SCH (08:58)
[2022-09-20] MEDS: FOLIC ACID 1 MG TABLET PO SCH (08:58)
[2022-09-20] MEDS: MAGNESIUM OXIDE 400 MG TABLET PO SCH (08:59)
[2022-09-20] MEDS: VALPROIC ACID 250 MG CAPSULE (DEPAKENE) PO SCH ×2 (08:59→15:15)
[2022-09-20] MEDS: NEPHROVITE, (FOLIC ACID/VITAMIN B COMP W-C 1 TAB) PO SCH (09:00)
[2022-09-20 11:24] VITALS: BP_SYST 105
[2022-09-20] MEDS ORDERED: IPRA4AER INH (13:32)
[2022-09-20] MEDS ORDERED: LEVO-62 PO (13:35)
[2022-09-20] MEDS ORDERED: METR-343 PO (13:36)
[2022-09-20] MEDS ORDERED: LACT1TAB6 PO (13:39)
[2022-09-20 15:28] VITALS: BP_SYST 101
[2022-09-20 17:20] VITALS: BP_SYST 101
--- NOTE | 2022-09-21 09:37 | NUR ---
Discharge Planning: DCP faxed pt referral for home health to [facility]#[phone] DCP to follow up.
== END 2022-09-20 21:07 | disposition home health service (06) | DRG 53 ==
LOC: SED 19:17 → STU 23:15 → SMU 09-07 23:34 → STU 09-12 19:01 → SMU 09-18 17:34
PROVIDERS: ADMIT Internal Medicine; ATTEND Internal Medicine
PROC: 4A00X4Z Measurement of Central Nervous Electrical Activity, External Approach (ICD-10-PCS; principal; 2022-09-07)
DX: G40.909 Epilepsy, unspecified, not intractable, without status epilepticus (principal); J69.0 Pneumonitis due to inhalation of food and vomit; I69.354 Hemiplegia and hemiparesis following cerebral infarction affecting left non-dominant side; J44.1 Chronic obstructive pulmonary disease with (acute) exacerbation; J44.0 Chronic obstructive pulmonary disease with (acute) lower respiratory infection; F84.5 Asperger's syndrome; N40.0 Benign prostatic hyperplasia without lower urinary tract symptoms; Z20.822 Contact with and (suspected) exposure to COVID-19; Z88.0 Allergy status to penicillin; Z85.828 Personal history of other malignant neoplasm of skin
CPT/HCPCS: 36415; 70450-TC; 71045; 76376; 80048; 80053; 80164; 80185; 81003; 82962; 83880; 85025; 92610-GN; 94640; 94760; 95816; 96365; 96375; 97110-GP; 97116-GP; 97530-GP; 99285; G0378; J1953; J1956; J2060; J2405; J3490; J7030; J7050